=== PATIENT | male | born 1960 | race Caucasian/White ===

== ENCOUNTER → 2020-12-28 12:42 | Outpatient (BNVA) | payer OTHER, SELFPAY | PROVIDERS: Visit Provider Physician Assistant Medical | DX: S80.12XA Contusion of left lower leg, initial encounter (principal); W20.8XXA Other cause of strike by thrown, projected or falling object, initial encounter | CPT/HCPCS: 99203 ==

== ENCOUNTER → 2020-12-31 11:20 | Outpatient (BNVA) | payer OTHER, SELFPAY | PROVIDERS: Visit Provider Physician Assistant Medical | DX: S80.12XA Contusion of left lower leg, initial encounter (principal); I87.2 Venous insufficiency (chronic) (peripheral); X19.XXXA Contact with other heat and hot substances, initial encounter | CPT/HCPCS: 99213 ==

== ENCOUNTER → 2021-01-03 13:05 | Outpatient (BNVA) | payer OTHER, SELFPAY | PROVIDERS: Visit Provider Physician Assistant Medical | DX: S80.12XA Contusion of left lower leg, initial encounter (principal); T24.202A Burn of second degree of unspecified site of left lower limb, except ankle and foot, initial encounter; X19.XXXA Contact with other heat and hot substances, initial encounter | CPT/HCPCS: 99213 ==

== ENCOUNTER → 2021-01-06 13:12 | Outpatient (BNVA) | payer OTHER, SELFPAY | PROVIDERS: Visit Provider Physician Assistant Medical | DX: S80.12XA Contusion of left lower leg, initial encounter (principal); T24.202A Burn of second degree of unspecified site of left lower limb, except ankle and foot, initial encounter; X19.XXXA Contact with other heat and hot substances, initial encounter; L03.116 Cellulitis of left lower limb | CPT/HCPCS: 99213 ==

== ENCOUNTER → 2021-01-10 13:11 | Outpatient (BNVA) | payer OTHER, SELFPAY | PROVIDERS: Visit Provider Physician Assistant Medical | DX: S80.12XD Contusion of left lower leg, subsequent encounter (principal); T24.202D Burn of second degree of unspecified site of left lower limb, except ankle and foot, subsequent encounter; X19.XXXD Contact with other heat and hot substances, subsequent encounter | CPT/HCPCS: 99213 ==

== ENCOUNTER → 2021-01-14 08:45 | Outpatient (BNVA) | payer OTHER, SELFPAY | PROVIDERS: PCP Pediatrics; Visit Provider Surgery | DX: T14.8XXA Other injury of unspecified body region, initial encounter (principal) | CPT/HCPCS: 99202 ==

== ENCOUNTER → 2021-02-08 14:30 | Outpatient (BNVA) | payer OTHER, SELFPAY | PROVIDERS: PCP Pediatrics; Referring Provider Pediatrics; Visit Provider Surgery ==

== ENCOUNTER → 2021-02-11 11:11 | Outpatient (BNVA) | payer OTHER, SELFPAY | PROVIDERS: PCP Pediatrics; Referring Provider Pediatrics; Visit Provider Surgery | DX: S80.12XD Contusion of left lower leg, subsequent encounter (principal) | CPT/HCPCS: 99212 ==